=== PATIENT | male | born 1945 | race Caucasian/White ===

== ENCOUNTER 2017-03-24 20:17 | Emergency (ER) | payer MEDICARE, BC ==
--- NOTE | ~2017-03-24 | ER ---
[facility] 71 Y [address] ROOM: [place] [address] LOCATION: ED ADMIT DATE: 03/24/2017 ER/Outpatient Report DISCHARGE DATE: 03/24/2017 FAMILY PHYSICIAN: Katelyn Miller MD ATTENDING PHYSICIAN: Brandi Raman Time of Arrival: 2020 hours. Time of Evaluation: 1 hours. CHIEF COMPLAINT: Vision changes. HISTORY OF PRESENT ILLNESS: The patient states he has had wavy lines in his vision for the past couple of days. It seemed like it was worse this morning. He did lay back down and when he got back up, it was a little bit better. 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 He did have an episode this evening of diaphoresis and felt as though his balance was off. He has had some generalized sinus congestion, has not felt feverish, has not had any chest pain. Denies having a headache. He has not been nauseated. No vomiting. ALLERGIES: HE HAS NO KNOWN ALLERGIES. MEDICATIONS: No current medications. PAST MEDICAL HISTORY: He reports is benign. PAST SURGICAL HISTORY: He has had back surgery x2. SOCIAL HISTORY: Smokes a pack per day and has for many years. Denies use of drugs and alcohol. He presents to the ER tonight accompanied by his . REVIEW OF SYSTEMS: reports he did have a complete visual exam in November. At that time, he did not have any problems. Other review of systems are negative other than those mentioned in the HPI. PHYSICAL EXAMINATION: VITAL SIGNS: He weighs 88.3 kg, blood pressure is 170/93, pulse is 74, [facility] AGE: 71 Y [address] ROOM: [place] [address] LOCATION: [facility] ADMIT DATE: 03/24/2017 ER/Outpatient Report DISCHARGE DATE: 03/24/2017 FAMILY PHYSICIAN: Katelyn Miller MD ATTENDING PHYSICIAN: Brandi Raman respirations 16, temperature of 97.5 tympanic, O2 saturation is 95% on room air. GENERAL: He is awake, alert, and oriented x4. SKIN: [place], warm, and dry. RESPIRATIONS: Even and nonlabored. HEENT: Pupils are equal and reactive to light. Extraocular movement is intact. Negative nystagmus. Funduscopic exam grossly intact. TMs are dull. Nasal is boggy. Oropharynx is clear. NECK: Supple. No lymphadenopathy. LUNGS: Lung sounds are clear throughout. HEART: Regular rate and rhythm. ABDOMEN: Soft, nondistended. Bowel sounds are present. NEURO: Cranial nerves 2 through 12 are grossly intact. EMERGENCY DEPARTMENT COURSE: CBC is within normal limits. Chem panel is within normal limits. CT of the head was completed. Radiologist reports minimal age-appropriate atrophy, otherwise no acute hemorrhage or infarct is seen. No masses are identified. No hydrocephalus. He does have minimal sinus disease. He denied any change in his symptoms. His blood pressure did come down to 160/91, pulse is 68, O2 sats remained greater 90%. Did review the patient with Dr. Raman. IMPRESSION: Vision changes. PLAN: Home, rest, fluids. No driving. He is to call his eye doctor, make an appointment to be seen tomorrow or Saturday at the latest. He and his verbalized understanding. CLARI FERRIS APRN FOR MD DAFNE CONTRERAS/bettye /[id number] d: 03/24/17 2323 t: 03/28/17 1537, OUTPATIENT REPORT
[2017-03-24 20:53] LABS: BASOPHIL # 0.1 K/uL (0.0-0.2); BASOPHIL % 0.7 %; EOSINOPHIL # 0.1 K/uL (0.0-0.5); EOSINOPHIL % 1.6 %; HEMATOCRIT 45.9 % (37.0-53.0); HEMOGLOBIN 15.7 g/dL (11.0-16.0); IMMATURE GRANULOCYTE % 0.4 %; LYMPHOCYTE # 1.8 K/uL (0.8-4.0); LYMPHOCYTE % 24.2 %; MCH 31.8 pg (27.0-34.0); MCHC 34.2 gm/dL (32.0-36.5); MCV 92.9 fl (83.0-98.0); MONOCYTE # 0.7 K/uL (0.0-1.0); MONOCYTE % 8.9 %; MPV 8.7 fl (9.4-12.4); NEUTROPHIL # (ANC) 4.8 K/uL (1.4-9.0); NEUTROPHIL % 64.2 %; NRBC % 0 /100WBC (0-0.00); PLATELET COUNT 153 K/uL (150-450); RBC 4.94 M/uL (3.50-5.50); RDW-CV 15.1 % (11.9-14.6); WBC 7.5 K/uL (4.0-11.0)
[2017-03-24 21:02] LABS: INR - (THERAPEUTIC) 1.02 (0.92-1.07); PROTIME 10.7 SECONDS (9.8-11.4); PTT 29 SECONDS (25-32)
[2017-03-24 21:13] LABS: ALBUMIN 3.6 gm/dL (3.5-5.0); ANION GAP 10.3 (10.0-19.0); CALCIUM 9.3 mg/dL (8.5-10.5); CREATININE 1.2 mg/dL (0.6-1.3); POTASSIUM 4.3 mMol/L (3.7-5.1); TOTAL BILIRUBIN 0.5 mg/dL (0.0-1.5); TOTAL PROTEIN 7.3 g/dL (6.0-8.4)
== END 2017-03-24 21:30 | disposition disaster alternative care site (69) ==
LOC: GMED 20:17
PROVIDERS: Nurse Practitioner Family
DX: H53.9 Unspecified visual disturbance (principal); F17.210 Nicotine dependence, cigarettes, uncomplicated; Z98.890 Other specified postprocedural states

== ENCOUNTER 2017-03-30 09:25 | Inpatient (IN) | payer MEDICARE, BC ==
[~2017-03-30] VITALS: Ht 180.3 cm; Wt 87.0 kg
--- NOTE | ~2017-03-30 | CON ---
PATIENT'S NAME: LAURA WILKINS [facility] AGE: 71 Y [address] ROOM: [address] [place], [place] [address] LOCATION: GICU ADMIT DATE: 03/30/2017 Consultation DISCHARGE DATE: 03/30/2017 FAMILY PHYSICIAN: Katelyn Miller MD ATTENDING PHYSICIAN: Konrad Glover DATE OF CONSULTATION: 03/30/2017 REFERRING PHYSICIAN: Konrad Figueroa MD CHIEF COMPLAINT: Left-sided body weakness, slurred speech, basilar artery thrombosis, post tissue plasminogen activator left posterior temporal lobe intraparenchymal hemorrhage, decreased level of consciousness. HISTORY OF PRESENT ILLNESS: The patient is a 71-year-old right-handed male patient who is known to have hypertension, presented to the emergency today with left-sided body weakness, slurred speech. According to the and notes, the patient woke up by 4 in the morning and he was totally normal. He went back to bed and then at 8 in the morning, he woke up with left-sided body weakness and slurred speech. The patient was brought to the emergency by his and on arrival to the emergency, his neurological deficits completely resolved. He was seen by the emergency physician and MRI of the brain showed evidence of a small left cerebellar ischemic stroke and small bilateral occipital lobe ischemic strokes. The patient had vision symptoms about a week ago and he was investigated with a noncontrast CT head that was normal. Neurology was called and assessed the patient. On the way back from the MRI, the patient developed very dense left-sided body weakness, left facial droop, and slurred speech. Neurology assessed the patient and decided to start tissue plasminogen activator. The patient received tissue plasminogen activator and subsequently, his deficits completely resolved. He was then taken to the scan and noncontrast CT head, CT angiogram was done and that showed evidence of bilateral occipital temporal cortical subarachnoid hemorrhage and a small left temporal intraparenchymal hemorrhage. The CT angiogram showed evidence of a very diffuse basilar artery thrombosis. About 2 hours after the tissue plasminogen activator, the patient developed a change in the level of consciousness and vomiting. A stat noncontrast CT head showed evidence of a very large left posterior temporal intraparenchymal hemorrhage. I was contacted to assess the patient. Just before I assessed the patient, the patient was intubated by the aboriginal education teacher. His blood pressure was also controlled. I assessed the patient in the intensive care unit. The patient was intubated and sedated. Further history was unobtainable. PATIENT'S NAME: LAURA WILKINS [facility] AGE: 71 Y [address] ROOM: [place] [address] LOCATION: GICU ADMIT DATE: 03/30/2017 Consultation DISCHARGE DATE: 03/30/2017 FAMILY PHYSICIAN: Katelyn Miller MD ATTENDING PHYSICIAN: Konrad Glover PAST MEDICAL AND SURGICAL HISTORY: Hypertension, back surgery x2. REVIEW OF SYSTEMS: Unobtainable given the intubation and level of consciousness. MEDICATIONS: Listed in the patient's chart. The patient was receiving tissue plasminogen activator as per stroke protocol. ALLERGIES: NO KNOWN DRUG ALLERGIES. FAMILY HISTORY: Unobtainable given the patient's intubation and level of consciousness. SOCIAL HISTORY: Unobtainable given the patient's level of consciousness and intubation. PHYSICAL EXAMINATION: GENERAL: The patient was intubated and ventilated. HEAD: Atraumatic. The pupils were 2 mm and reactive to light. VITAL SIGNS: Systolic blood pressure was over 150. RESPIRATORY: The patient was intubated and ventilated. CARDIOVASCULAR EXAMINATION: The patient had palpable pulses on his upper extremities. NEUROLOGIC: The patient was intubated and ventilated. He had no eye opening to verbal or pain. The pupils were 2 mm and reactive. The patient was localizing on both upper extremities to pain. He was also spontaneously moving both lower extremities, although accurate assessment is limited due to recent sedation and paralysis. INVESTIGATIONS: 1. MRI of the head without contrast done on March 30, 2017 at 10:14 a.m. It showed evidence of small left cerebellar ischemic stroke as well as bilateral occipital ischemic strokes. The MRI also was suspicious for basilar artery thrombus. No evidence of middle cerebral artery stroke. 2. Noncontrast CT head and CT angiogram done on March 30, 2017 at 12:[address] head showed evidence of subarachnoid blood within the temporo-occipital convexity as well as small left temporal basal intraparenchymal hemorrhage. The CT angiogram showed evidence of diffuse basilar artery thrombosis. 3. Noncontrast CT head done on March 30, 2017 at 1503 hours. It showed evidence of very large left posterior temporal lobe intraparenchymal hemorrhage with mass effect. The basal cisterns are patent. It also PATIENT'S NAME: LAURA WILKINS [facility] AGE: 71 Y [address] ROOM: [id number] [place], [place] [address] LOCATION: GICU ADMIT DATE: 03/30/2017 Consultation DISCHARGE DATE: 03/30/2017 FAMILY PHYSICIAN: Katelyn Miller MD ATTENDING PHYSICIAN: Kornad Glover showed increase in the amount of subarachnoid blood within the occipital temporal convexity. It also showed evidence of a small intraparenchymal hemorrhage within the vermis of the cerebellum. 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 The patient is currently intubated and sedated. His examination is limited although it did not show any anisocoria or focal neurological deficits. I thoroughly discussed the situation with the attending physician, neurologist (Dr. Figueroa), interventional neurovascular surgeon at the [facility] (Dr. Morales Littlejohn), and the family. I clearly indicated that the patient's situation is very complex given the extensive basilar artery thrombosis, ischemic strokes within the posterior circulation territory, and post tissue plasminogen activator left temporal intraparenchymal hemorrhage. I clearly indicated that the patient's fluctuating neurological deficits are worrisome for perforators type stroke/transient ischemic attack due to embolization from basilar artery thrombus. Given the extensive basilar artery thrombosis and the post tissue plasminogen activator intraparenchymal hemorrhage, I felt that this patient requires higher level of care where endovascular intervention is available. I clearly indicated that given the extensive basilar artery thrombus, this patient may require endovascular intervention for that and plus/minus craniotomy and evacuation of the left temporal intraparenchymal hemorrhage. I clearly indicated that the patient's neurological examination is reassuring at this time and likely will tolerate air transfer to [facility] for definitive treatment. The family asked appropriate questions about the patient's condition and all those questions were answered to their satisfaction. It was a pleasure taking care of this patient and thanks for having us involved. Total time of critical care encounter was 30 minutes, more than 50% of that time was spent on counselling. MD OLGA LIEBERMAN/bettye PATIENT'S NAME: LAURA WILKINS [facility] AGE: 71 Y [address] ROOM: [place] [address] LOCATION: [facility] ADMIT DATE: 03/30/2017 Consultation DISCHARGE DATE: 03/30/2017 FAMILY PHYSICIAN: Katelyn Miller MD ATTENDING PHYSICIAN: oKnrad Glover /[id number] CC: MD Konrad Archer MD Andrew Gard, MD [place], [place] d: 03/31/171935 t: 04/01/171952, CONSULTATION REPORT
--- NOTE | ~2017-03-30 | OR ---
PATIENT'S NAME: LAURA WILKINS [facility] AGE: 71 Y [address] ROOM: [place] [address] LOCATION: GICU ADMIT DATE: 03/30/2017 OR/Procedure Report DISCHARGE DATE: 03/30/2017 FAMILY PHYSICIAN: Katelyn Miller MD ATTENDING PHYSICIAN: Konrad Glover SURGEON: Maxim James MD BRIM GREASER OPERATOR: DATE OF PROCEDURE: 03/30/2017 PROCEDURES PERFORMED: 1. Emergent endotracheal intubation. 2. Left radial arterial line placement. CONSENT: These procedures were done emergently. PROCEDURE IN DETAIL: Endotracheal intubation: After the initial evaluation, the patient was put in supine position. He was induced using 50 mg of propofol and 100 mg of succinylcholine. A Max 3 blade was used to visualize the vocal cord. An 8.0 tube was passed through the vocal cords without any resistance. The tube placement was confirmed by end-tidal CO2 and a chest x-ray. Left radial arterial line placement: After the initial evaluation, the left radial artery was prepped and draped in the usual fashion. Then an Arrow kit was used to access the radial artery. The catheter went without any resistance. There was good waveform on the monitor. The patient tolerated the procedure well. There were no immediate complications. Thank you for allowing me to participate in the care of this patient. MD JASMIN FIGUEROA/bettye /[id number] d: 03/30/17 2249 t: 04/02/17 1413, OPERATIVE SUMMARY
--- NOTE | ~2017-03-30 | DS ---
PATIENT'S NAME: ALURA WILKINS [facility] AGE: 71 Y [address] ROOM: [address] [place] [address] LOCATION: [facility] ADMIT DATE: 03/30/2017 Discharge Summary DISCHARGE DATE: 03/30/2017 FAMILY PHYSICIAN: Katelyn Miller MD ATTENDING PHYSICIAN: Konrad Glover Mr. Wilkins is a 71-year-old male patient who was admitted to our ER with a presentation that started at 8:00 a.m. of sudden onset of left-sided weakness and right-sided neglect. Upon his way to the emergency room, his symptoms had improved dramatically, however, when the patient returned from an MRI, he seemed to have progressed to a dense left hemiparesis in the left arm and leg, also he had severe slurring of his speech and left-sided neglect with a tendency for right gaze preference. MRI showed evidence for very small areas of diffusion-weighted imaging findings of an acute stroke into the posterior pole bilaterally and a small area of diffusion-weighted imaging finding in the left cerebellum. It appears that this was associated with the patient presenting to our hospital 1 week ago. At that time, he came in with problems with walking and severe dizziness and possibly some visual obscuration. 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 Again, he had a left dense hemiparesis and right gaze preference, consistent with possibly a stroke into the right MCA territory. Based upon the findings on the MRI, which were very small, and the patient having very dense paralysis, severe speech deficit, neglect, I discussed with the about giving the patient tPA, which would be clearly in the window of his presentation. Told the patient's that there is likely an increased risk for bleed due to the very small little strokes that were seen in the MRI, but likely inconsistent with the patient's presentation. In fact, the patient did score a very high score on the NIH stroke scale of 25. TPA was given with the risk-benefit ratio clearly in the benefit of giving tPA for an acute stroke, nonetheless the risk for bleeding would be considered. The patient received beginnings of tPA at 11:09 a.m. and then the rest of the bolus was given throughout the hour. Forty-five minutes into the tPA, he started to have an improvement in his power and at around 12:30 when I saw him again, he had dramatically improved with his power in the left upper and lower extremity and his speech was much better. He was looking towards the left and answering all commands, even in fact wanted to get up and walk around. I was told by the nurses he possibly got up towards the side of his bed. I did order a CT angiogram after the patient had the tPA and I went over the results with the radiologist. There was clearly no evidence of any thrombus in the neck and no evidence of any thrombus seen in the anterior circulation, which was somewhat surprising based upon the patient's presentation; however, there was a clear evidence of a thrombus in the basilar artery, some filling of the top of the basilar artery from the posterior PATIENT'S NAME: LAURA WILKINS [facility] AGE: 71 Y [address] ROOM: [place] [address] LOCATION: [facility] ADMIT DATE: 03/30/2017 Discharge Summary DISCHARGE DATE: 03/30/2017 FAMILY PHYSICIAN: Katelyn Miller MD ATTENDING PHYSICIAN: Konrad Glover circulation via the posterior cerebral arteries anastomosing through the posterior communicating artery. However, again no to very low flow was seen in the basilar artery, probably at the level of the mid brain and tricia. Circulation from the vertebral arteries did seem to be in place. At around 2:30, I got a call from the floor from the nurse saying that the patient had an acute mental status change, was feeling nauseousness, and was poorly responsive. I asked for the patient to be sent down for a noncontrast CAT scan. Unfortunately, there was evidence for a hemorrhage. A fairly large hemorrhage was seen into the left MCA territory and some subarachnoid blood elsewhere was seen with some blood even into the cerebellum. Surprisingly, no hemorrhagic transformation was taking place in the right MCA territory, which was thought to be an area where the patient was having the stroke. There did not appear to be any evolving stroke into the cerebral hemispheres. I quickly went to go see the patient and saw that he would likely have difficulty maintaining consciousness during the course of the next 2 hours, he was alerting, following some basic commands, seemingly moving his right upper extremity more than the left upper extremity, but still able to move his left side. Hospitalist, Dr. Glover, as well as critical care physician, Dr. James, and myself, decided the patient needed to be intubated and I discussed this with the multiple family members present. We also called Dr. Hair in from Neurosurgery in regard to the bleed. Both he and I went over the results of the CT angiogram. We both noted that the thrombosis of the basilar artery would possibly be confounding a recovery in this patient and possibly would make the patient progressively get worse or even go into a coma if this is indeed associated with a stroke into the brainstem. Again, some of the findings on the physical exam did not necessarily support a basilar artery thrombosis, as he clearly presented with hemiparesis. He did not have any bilateral symptoms. His cardiac exam was otherwise normal, no arrhythmia. His breathing had been fairly good. We both decided to speak with [facility]. I spoke there with Dr. Morales Littlejohn. He is an interventional neurosurgeon, and we discussed the possibility that the patient would need endovascular procedure opening up the basilar artery. I went over the exam initially with Dr. Littlejohn and so did Dr. Hair. Furthermore, I had a longer conversation with Dr. Littlejohn about 1 hour later after he had time to review over the imaging. He too was perplexed with the presentation as to why the patient presented hemiparetic, wasn't clearly having basilar artery symptoms of his stroke, but nonetheless, there was a clear thrombus in that area and may have been there in acute setting or possibly related to his presentation 1 week ago with vertigo. The patient according to his was not complaining about visual field deficits at all. Actually, he did resume his full work activity during the past week. There did not seem to be any history the patient injured his neck. By history, the patient was a heavy smoker, about a [id number] history of smoking, and PATIENT'S NAME: LAURA WILKINS [facility] AGE: 71 Y [address] ROOM: [place] [address] LOCATION: [facility] ADMIT DATE: 03/30/2017 Discharge Summary DISCHARGE DATE: 03/30/2017 FAMILY PHYSICIAN: Katelyn Miller MD ATTENDING PHYSICIAN: Konrad Glover continued to smoke cigarettes on a daily basis. We had no other medical history because the patient never went to a doctor. He was on no medications at home. His only time that he was in the hospital was for a back surgery about 10 years ago. So with the information at hand, both myself, Dr. Glover, and Dr. Hair discussed transferring the patient who was accepted by Dr. Littlejohn to [facility]. The nature of the bleed Dr. Hair did not feel was necessary at this point in time to evacuate. The most telling issue was the basilar artery thrombosis that could indeed cause him to lose complete function of the brainstem. Nonetheless due to the patient having a bleed post tPA, 6 units of platelets was ordered as well as cryoprecipitate given to the patient prior to his being air flighted to [facility]. I discussed extensively the rationale for need for transfer to [facility] based upon the availability of an interventional neurosurgeon, possibly an intervention for the basilar artery thrombosis. The patient was stabilized through intubation and vital signs remained stable throughout the time the patient was intubated. The patient left our premises by air flight at approximately 5:45 this evening. All information concerning the patient's state was shared with Dr. Littlejohn and any information, radiology reports, admission reports were also sent to [facility]. The case has been extensively discussed today with Dr. Glover, Dr. Littlejohn, and Dr. Hair. KONRAD BRADY MD JRM/modl /[id number] d: 03/31/17 0027 t: 04/09/17 1702, DISCHARGE SUMMARY
--- NOTE | ~2017-03-30 | HP ---
PATIENT'S NAME: LAURA WILKINS [facility] AGE: 71 Y [address] ROOM: [address] [address] LOCATION: [facility] ADMIT DATE: 03/30/2017 History & Physical DISCHARGE DATE: FAMILY PHYSICIAN: Katelyn Miller MD ATTENDING PHYSICIAN: LINCOLN CONSTANTINO DATE OF SERVICE: 03/30/2017 CHIEF COMPLAINT: Hospitalist Service called for admission following neurologic evaluation in the emergency department and administration of tPA for acute CVA. HISTORY OF PRESENT ILLNESS: This is a 71-year-old male with a benign past medical history, seen recently in our emergency department for concerns of vertigo, with a negative CT scan at that time for concern of stroke, who followed up initially with his eye doctor and subsequently ENT for this vertigo without improvement. The patient re-presented today with his family with concerns for TIA-type symptoms similar to prior which had been resolving immediately upon arrival to the emergency department; however, while en route to the CT scanner, he suffered an abrupt change in neurologic status to include left hemiparesis, speech difficulty, and left neglect. An MRI actually was performed and shows some posterior distribution infarctions bilaterally as well as a small area in the cerebellum. Dr. Figueroa saw the patient immediately and determined that the patient, given his drastic change in neurologic symptoms which was witnessed in the emergency department, and after discussion with family, was deemed to be a candidate for tPA. TPA was administered at 1109 hours this morning. Per discussion with the patient's family, there have been no other recent contributing symptoms including no fevers or chills. No chest pain or shortness of breath. No abdominal pain. No bowel or bladder concerns or leg swelling. Most notably, also, the patient's family denies any recent symptoms of lightheadedness, dizziness, or heart palpitations which would be suggestive of heart arrhythmia potentially contributing to current presentation. Currently, the patient is seen immediately status post tPA and is unable to provide further history regarding the events preceding his arrival today. Thus, history is necessarily obtained from family and emergency room staff. PAST MEDICAL HISTORY: Reportedly, benign. No prior diagnoses. PAST SURGICAL HISTORY: He had a back surgery on 2 different occasions in the past. FAMILY HISTORY: Reviewed with family and noncontributory to current presentation. PATIENT'S NAME: LAURA WILKINS [facility] AGE: 71 Y [address] 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 ALLERGIES: NO KNOWN DRUG ALLERGIES. MEDICATIONS: The patient takes no medications chronically. REVIEW OF SYSTEMS: Obtained from family and emergency room staff as well as Dr. Figueroa and negative except as noted above in the HPI. PHYSICAL EXAMINATION: VITAL SIGNS: Temperature 96.3, pulse 57, respirations 18, blood pressure 150s over 80s, and saturating well on room air. GENERAL: The patient is awake and follows commands, but otherwise not able to participate in discussion or exam. The patient is in no acute distress, lying comfortably in bed. HEENT: Head: Normocephalic and atraumatic. Eyes: Pupils equal, round, and reactive to light. No conjunctival erythema or scleral icterus. ENT: Mucous membranes dry. No nasal discharge. NECK: Supple. No lymphadenopathy. No thyromegaly. No JVD. CARDIOVASCULAR: Regular rate and rhythm. No murmurs, rubs, or gallops appreciated. Borderline bradycardic, in sinus rhythm based on telemetry. PULMONARY: Respirations clear to auscultation bilaterally. Coughing occasionally during exam. Breathing with normal effort, and saturating well on room air. ABDOMEN: Soft, nontender, and nondistended. Normoactive bowel sounds. EXTREMITIES: Without appreciable edema or lesions noted on skin. NEUROLOGIC: Extensive left hemiparesis with difficulty with speech and left jada-neglect. NIH stroke scale done in the emergency department is 23. Please see the accompanying documentation for that full evaluation. LABORATORY AND IMAGING DATA: Labs in the emergency department notable for CMP with sodium 139, potassium 4.1, chloride 107, bicarbonate 25, BUN 16, creatinine 1.1, calcium 8.6, and glucose 114. LFTs are all normal. TSH 2.31. Troponin negative. Procalcitonin less than 0.05. Lactate 1.2. MRI with aforementioned lesions, please see full report from Radiology, though does appear to have several small areas of involvement in the posterior circulation. ASSESSMENT: PATIENT'S NAME: LAURA WILKINS [facility] AGE: 71 Y [address] ROOM: [id number] [place], [place] [address] LOCATION: [facility] ADMIT DATE: 03/30/2017 History & Physical DISCHARGE DATE: FAMILY PHYSICIAN: Katelyn Miller MD ATTENDING PHYSICIAN: LINCOLN CONSTANTINO Acute ischemic cerebrovascular accident, status post tPA with residual deficits. PLAN: We will admit the patient to ICU for post tPA monitoring. The patient was placed on post tPA pathway and will be monitored closely here over the next few hours, especially with regard to his blood pressure and neurologic exam. We will treat to a goal of less than 180/105 with labetalol as needed. Of note, while seeing the patient following tPA in the emergency department, symptoms have already begun to resolve with improvement of his left side from drastic left hemiparesis. We will continue to monitor closely and gently rehydrate with normal saline. We will maintain n.p.o. status, and Speech to evaluate. The patient is a full code. We will hold off on DVT prophylaxis given recent administration of tPA. Time spent on date of admission including direct axvr-hy-zmka evaluation and discussion with Dr. Figueroa of Neurology is 25 minutes. MD RAMESH CASAS/bettye /[id number] D: [id number] T: [id number] HISTORY & PHYSICAL
--- NOTE | ~2017-03-30 | ER ---
[facility] 71 Y [address] ROOM: [place] [address] LOCATION: [facility] ADMIT DATE: 03/30/2017 ER/Outpatient Report DISCHARGE DATE: 03/30/2017 FAMILY PHYSICIAN: Katelyn Miller MD ATTENDING PHYSICIAN: Konrad Glover Time of Arrival: 923. Time of Evaluation: 923. CHIEF COMPLAINT: Left-sided weakness. HISTORY OF PRESENT ILLNESS: The patient is a 71-year-old male, who presents to the emergency department today with chief complaint of left-sided weakness. He also had some difficulties with speech. The patient and his report that the patient woke up normal at 4:00 a.m. He went back to bed, however, then woke up later with these symptoms that seem to start around 8:00 a.m. They did resolve by the time he reached the emergency department here as they had an hour and half drive here. The patient was seen and evaluated about a week ago for some blurry vision. He had a full workup including CT scan and laboratory analysis that were all unremarkable. He is discharged home with instructions to follow up with an eye doctor. He is having no vision changes. His eye doctor reported normal vision. He then did see his primary care doctor, who reported that it was concerning for inner ear infection due to a viral illness. The patient reports he feels fine at this time. Denies any fevers or chills. No nausea or vomiting. No diarrhea or constipation. Apparently, he had been active out working all week and not having any issues until this morning. PAST MEDICAL HISTORY: High blood pressure. PAST SURGICAL HISTORY: Back surgery x2. SOCIAL HISTORY: The patient smokes pack per day for many years. Denies any alcohol or illicit drug use. ALLERGIES: NO KNOWN DRUG ALLERGIES. MEDICATIONS: Meclizine. PRIMARY CARE DOCTORS: [facility] 71 Y [address] ROOM: [place] [address] LOCATION: [facility] ADMIT DATE: 03/30/2017 ER/Outpatient Report DISCHARGE DATE: 03/30/2017 FAMILY PHYSICIAN: Katelyn Miller MD ATTENDING PHYSICIAN: Konrad Glover 1. Katelyn Miller MD. REVIEW OF SYSTEMS: All systems are reviewed by myself and are negative with the exception of those discussed in HPI and past medical history. PHYSICAL EXAMINATION: VITAL SIGNS: Weight 87.7 kg. Blood pressure 155/89, pulse 57, respiratory rate 18, temperature 96.3, oxygen saturation 96% on room air. GENERAL: The patient is a 71-year-old male, appears stated age, in no acute distress at this time. HEENT: Head: Normocephalic, atraumatic. Pupils are equal, round, and reactive to light and accommodation. Extraocular motions are intact. Nares are patent bilaterally. TMs are clear. Oropharynx is clear. NECK: Supple. There is no nuchal rigidity. CARDIOVASCULAR: Bradycardic. No murmurs, rubs, or gallops. LUNGS: Clear to auscultation bilaterally. No wheezes, rales, or rhonchi. ABDOMEN: Soft, nontender, and nondistended. No rebound, rigidity, or guarding. MUSCULOSKELETAL: The patient moves all 4 extremities. NEUROLOGIC: GCS 15. Alert and oriented x4. Cranial nerves 2 through 12 are intact. Normal bjaqie-cs-wpla. Equal product owner strength bilaterally. No pronator drift. Downward going toes. No clonus. SKIN: Warm and dry. No rashes or lesions noted. LABORATORY DATA AND X-RAYS: Labs and x-rays are obtained. EKG is obtained, is interpreted by myself at 10:15 shows sinus rhythm with a rate of 58, normal axis, normal interval. No ST elevation or ST depression. T-wave inversions. Lactate is normal. CBC is unremarkable except for a platelet of 139. Coags are normal. CMP is unremarkable except for a glucose of 114. LFTs are normal. CK, CK-MB, and troponin are normal. Free T4 and TSH are normal. ProBNP is normal. Procalcitonin is less than 0.05. Accu-Chek is 116. One-view chest x-ray is obtained, shows no acute process. MR of the brain is obtained. I have discussed results with radiologist. It shows small areas of acute ischemic infarct in the posterior inferior portion of the right and left occipital lobe as well as a small area of acute ischemic infarct at the left cerebellar hemisphere. There is also generalized atrophic changes and small matter changes. IMPRESSION: 1. Acute cerebrovascular accident with areas involvement of the posterior inferior portion of the right and left occipital lobe as well as small PATIENT'S NAME: LAURA WILKINS [facility] AGE: 71 Y [address] ROOM: [id number] [place], [place] [address] LOCATION: [facility] ADMIT DATE: 03/30/2017 ER/Outpatient Report DISCHARGE DATE: 03/30/2017 FAMILY PHYSICIAN: Katelyn Miller MD ATTENDING PHYSICIAN: Konrad Glover area of infection at the left cerebellar hemisphere. 2. Initial visit. EMERGENCY DEPARTMENT COURSE: The patient is brought back to the examination room. Seen and evaluated by myself. IV is established. Laboratory analysis and imaging are obtained as described above. I did order an MRI of the brain with the patient's symptoms and recent CT that was unremarkable. The patient had been back to his baseline at that time. Upon getting the MRI and then returning back to the emergency department, I was notified that as the patient was being wheeled back, there was a change in status. The patient was re-evaluated by myself and was found to have difficulties speaking, left-sided weakness, and facial droop of the left side at this time. I did contact Dr. Figueroa with Neurology for stroke evaluation. He quickly arrived and evaluated the patient down here in the emergency department. Dr. Figueroa has discussed with the , tPA administration. The patient's NIH stroke scale is calculated at 23. He is having significant deficits at this time. The patient does have the evidence of small strokes on MR. Dr. Figueroa has had a discussion about risks and benefits including potential bleeding into the brain with tPA administration. I have also discussed these risks with the patient's , her questions are answered. She does wish to proceed with the administration. I have discussed the case with Dr. Glover as well as Dr. Figueroa. I have also discussed the case with Dr. Sridhar Schumacher, who is on-call for the patient's primary care doctor, Dr. Miller. The patient is frequently re-evaluated after tPA administration. The patient's symptoms do progressively improved. He is then able to move his left arm and left leg. Dr. Figueroa has requested a CT angiography of the head and neck. This is ordered and those results are pending as the patient does undergo this exam on his way up to the intensive care unit. The patient did require cumulative critical care time of 38 minutes. This does include talking with family, as well as talking with multiple consultants, ordering tests, reviewing tests, as well as close monitoring the patient with active CVA, which did recieve tPA. DISPOSITION: The patient is admitted under the care of Dr. Glover, the hospitalist service in conjunction with Dr. Figueroa in Neurology to the intensive care unit in fair condition. DO JOSÉ MIGUEL MCCORMACK/bettye PATIENT'S NAME: LAURA WILKINS [facility] AGE: 71 Y [address] ROOM: [place] [address] LOCATION: [facility] ADMIT DATE: 03/30/2017 ER/Outpatient Report DISCHARGE DATE: 03/30/2017 FAMILY PHYSICIAN: Katelyn Miller MD ATTENDING PHYSICIAN: Konrad Glover /[id number] d: 03/30/172000 t: 03/31/17 08, OUTPATIENT REPORT
--- NOTE | ~2017-03-30 | CON ---
PATIENT'S NAME: LAURA WILKINS [facility] AGE: 71 Y [address] ROOM: [id number] [place] [address] LOCATION: GICU ADMIT DATE: 03/30/2017 Consultation DISCHARGE DATE: FAMILY PHYSICIAN: Katelyn Miller MD ATTENDING PHYSICIAN: LINCOLN GLOVER REFERRING PHYSICIAN: LINCOLN BRADY MD The patient was seen in neurologic consultation as a critical care consultation. This is a critical care consultation. Total time spent in the ER for evaluation as a stroke code along with discussions with Radiology is 1 hour 30 minutes. HISTORY OF PRESENT ILLNESS: A 71-year-old male patient who never goes to a hospital. He actually presented to this ER 7 days ago for vertigo symptoms. His symptoms were fairly benign as far as I am told by the , but he had some minor visual disturbance at that time such as a shakiness in his vision. Apparently, he did well the rest of the week, and he was sent home from the ER with a normal CAT scan. 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 However, this a.m., at around 8 a.m., the patient was suddenly seen by his to have slurring of his speech, a left facial droop, and weakness on his left side. This was somewhat transient as she got him to the hospital here, and the symptoms had really completely resolved. However, in the ER, upon the patient going for an MRI of the brain, he came back from the procedure and was found to have new developing symptoms again as left hemiparesis and a left facial droop, was also neglecting his whole left side. His left arm and left leg were essentially flaccid. The patient had such severe slurring of his speech and neglect that it was thought to be that he was dysarthric; however, the left-sided weakness was suggestive of a right MCA stroke. I looked over the MRI and saw that he had evidence for very small acute strokes that was in the posterior circulation involving very small DWI focus in the left cerebellum and the bilateral occipital cortex. Again, these were very small little findings for stroke. His presentation was extremely dramatic with full left hemiparesis and neglect consistent with an acute stroke in the right MCA distribution. I went over with the radiologist closely for any evidence of a stroke into the right MCA distribution or elsewhere that would describe his symptoms. Based upon the patient presenting in the window to receive tPA, I went over relative contraindication to giving tPA as opposed to an absolute contraindication based upon the patient having very small tiny strokes and with the knowledge that giving tPA would far outweigh as a possible benefit any negative risk of a bleed. I discussed this with the and had her sign the consent based upon my feelings that tPA should be administered in this case. The agreed to this presentation due to the dramatic presentation in the ER. At 1109 hours, he received tPA with vital signs stable. Blood pressure is in the 150s to 160s systolic. At the time of this note, the patient, at around 45 minutes, started to be able to PATIENT'S NAME: LAURA WILKINS [facility] AGE: 71 Y [address] ROOM: [place] [address] LOCATION: GICU ADMIT DATE: 03/30/2017 Consultation DISCHARGE DATE: FAMILY PHYSICIAN: Katelyn Miller MD ATTENDING PHYSICIAN: LINCOLN GLOVER move his left arm and left leg, and this was in the setting of him having less neglect of his left side and looking towards his left a bit more. He is currently being planned to be placed into the ICU post tPA; however, we will first get him a CT angiogram of the brain and neck for evidence of any thrombosis prior to going to the unit. SOCIAL HISTORY: He never goes to a doctor. 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 He is 50 years. He has 4 children; one child works with him. The other children are in various professions. The patient is a heavy smoker. He smoked for nearly 57-pack years, one pack a day. [place] [facility]. PRIOR MEDICAL HISTORY: Unknown as the patient never goes to a doctor. PRIOR SURGICAL HISTORY: He had a ruptured disk about 10 years ago and had low back surgery in [place], [place]. ALLERGIES: NO KNOWN DRUG ALLERGIES. MEDICATIONS: He is on no medications at home. PHYSICAL EXAMINATION: NEUROLOGIC: The patient had profound neglect and severe left hemiparesis without any movement of his left arm and leg upon his presentation prior to receiving tPA, but 45 minutes into tPA, the patient started to have less neglect of his left side and was beginning to elevate his left arm to a power of 3/5. His left leg also started to move, and power was likely now 3/5. Speech was becoming less slurred, and there was less of a facial droop. Sensory exam was otherwise intact to withdrawal of pain, but he had profound sensory neglect of his left arm and leg and possibly may be visual field neglect of the left side as well, though that was unclear. VITAL SIGNS: Remained stable, in sinus rhythm at 60 to 70 beats per minute. Blood pressure in the 150s to 160s systolic range. IMPRESSION: The patient had acute onset of a stroke heralded by some minor transient ischemic attack symptoms upon him presenting to the ER and then had a dramatic progression of the stroke after some resolvement, clearly being a candidate for tPA. He seems to be making a good improvement post tPA at this time by now activating his left side. We will view a CT angiogram for some evidence PATIENT'S NAME: LAURA WILKINS [facility] AGE: 71 Y [address] ROOM: [place] [address] LOCATION: [facility] ADMIT DATE: 03/30/2017 Consultation DISCHARGE DATE: FAMILY PHYSICIAN: Katelyn Miller MD ATTENDING PHYSICIAN: LINCOLN GLOVER of any thrombosis into the right MCA territory. There is some question on the MRI of a thrombosis of the basilar artery, and we will look more closely at this with the contrast CAT scan of the brain. The patient will likely need antiplatelet agent of aspirin 81 mg 24 hours and started on Lipitor 80 mg a day. The most important thing here is smoking cessation as this may ultimately be reason for multifocal strokes associated with possible advanced atherosclerosis; however, the nature of stroke last week in the posterior circulation and possibly now in the anterior circulation may suggest a cardiac source if there is atrial fibrillation. 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 The patient should have a TTE to evaluate his left ventricle ejection fraction and a duplex sonogram. I will follow up with the patient here in the ICU. The case was discussed with Dr. Glover, the hospitalist. MD LONI CAPUTO/modl /[id number] d: 03/30/17 1808 t: 04/09/17 1659, CONSULTATION REPORT
[2017-03-30 09:56] LABS: BASOPHIL # 0.1 K/uL (0.0-0.2); EOSINOPHIL # 0.2 K/uL (0.0-0.5); EOSINOPHIL % 2.4 %; HEMATOCRIT 47.6 % (37.0-53.0); HEMOGLOBIN 16.4 g/dL (11.0-16.0); IMMATURE GRANULOCYTE % 0.6 %; LYMPHOCYTE # 1.5 K/uL (0.8-4.0); LYMPHOCYTE % 21.5 %; MCHC 34.5 gm/dL (32.0-36.5); MCV 92.8 fl (83.0-98.0); MONOCYTE # 0.6 K/uL (0.0-1.0); MONOCYTE % 8.5 %; MPV 9.1 fl (9.4-12.4); NEUTROPHIL # (ANC) 4.6 K/uL (1.4-9.0); NRBC % 0 /100WBC (0-0.00); PLATELET COUNT 139 K/uL (150-450); RBC 5.13 M/uL (3.50-5.50); RDW-CV 14.8 % (11.9-14.6)
[2017-03-30 10:08] LABS: INR - (THERAPEUTIC) 1.04 (0.92-1.07); PROTIME 10.9 SECONDS (9.8-11.4); PTT 31 SECONDS (25-32)
[2017-03-30 10:23] LABS: ALBUMIN 3.3 gm/dL (3.5-5.0); ALK PHOS 81 IU/L (33-138); ALT 13 IU/L (12-78); ANION GAP 11.1 (10.0-19.0); AST 12 IU/L (10-40); BLOOD UREA NITROGEN 16 mg/dL (6-24); CALCIUM 8.6 mg/dL (8.5-10.5); CHLORIDE 107 mMol/L (96-110); CO2 25 mMol/L (22-32); CPK 55 IU/L (35-332); CREATININE 1.1 mg/dL (0.6-1.3); POTASSIUM 4.1 mMol/L (3.7-5.1); SODIUM 139 mMol/L (135-145); TOTAL BILIRUBIN 0.5 mg/dL (0.0-1.5); TOTAL PROTEIN 7.2 g/dL (6.0-8.4)
[2017-03-30 15:37] LABS: BICARBONATE 26.7 mmol/L (18.0-23.0); PCO2 53 mmHg (35-45); PO2 69 mmHg (80-90)
== END 2017-03-30 18:22 | disposition hospice, home (50) | DRG 61 ==
LOC: GMED 09:25 → GICU 11:36
PROVIDERS: Emergency Medicine; ADMIT Internal Medicine
PROC: 0BH17EZ Insertion of Endotracheal Airway into Trachea, Via Natural or Artificial Opening (ICD-10-PCS; principal; 2017-03-30)
PROC: 3E03317 Introduction of Other Thrombolytic into Peripheral Vein, Percutaneous Approach (ICD-10-PCS; principal; 2017-03-30)
DX: I63.9 Cerebral infarction, unspecified (principal); G93.49 Other encephalopathy; R47.81 Slurred speech; R29.810 Facial weakness; H53.9 Unspecified visual disturbance; F17.200 Nicotine dependence, unspecified, uncomplicated
CPT/HCPCS: J0330; J2250; J2405; J2704; J2997; J7030; J7040; J7050; P9012; P9035

== ENCOUNTER → 2017-03-30 | Outpatient (CLI) | payer MEDICARE, BC | END | disposition disaster alternative care site (69) | LOC: GAIR 17:48 | DX: I63.9 Cerebral infarction, unspecified (principal); I62.9 Nontraumatic intracranial hemorrhage, unspecified; R41.82 Altered mental status, unspecified | CPT/HCPCS: A0422; A0431; A0436; J2250 ==